=== PATIENT | female | born 1930 | race Caucasian/White ===

== ENCOUNTER 2017-06-12 06:52 | Day surgery (SDC) | payer MEDICARE ==
[~2017-06-12] VITALS: Ht 157.5 cm; Wt 64.9 kg
[2017-06-12 07:40] LABS: BASOPHILS 0.2 % (0-2); EOSINOPHILS 1.5 % (0-7); IMMATURE GRANULOCYTES 0.2 % (0-5); LYMPHOCYTES 32.3 % (15-50); MCH 31.3 pg (26.0-34.0); MCHC 32.4 g/dL (31.0-37.0); MCV 96.6 fL (80.0-100.0); MEAN PLATELET VOLUME 10.6 fL (7.4-10.4); MONOCYTES 13.3 % (2-11); NEUTROPHILS 52.5 % (40-80); PLATELET COUNT 239 10x3/uL (130-400); RBC 3.83 10x6/uL (4.00-5.40); RDW 12.6 % (11.5-14.5); WBC 4.6 10x3/uL (4.8-10.8)
[2017-06-12] MEDS ORDERED: DYAZIDE 37.5/251 CAP PO (08:10)
[2017-06-12] MEDS ORDERED: NORVASC5 MG PO (08:10)
[2017-06-12] MEDS ORDERED: PLAVIX75 MG PO (08:11)
[2017-06-12] MEDS ORDERED: PRINIVIL20 MG PO (08:11)
[2017-06-12] MEDS ORDERED: TRICOR145 MG PO (08:11)
[2017-06-12] MEDS ORDERED: ESTRACE 0.5 MG0.5 MG PO (08:12)
[2017-06-12] MEDS ORDERED: BAYER CHEWABLE81 MG PO (08:12)
[2017-06-12] MEDS ORDERED: MULTIPLE VITAMI1 TA1 PO (08:13)
[2017-06-12] MEDS ORDERED: GLUCOSAMINE & C1 CAP PO (08:13)
[2017-06-12] MEDS ORDERED: PRESERVISION AR1 CAP PO (08:13)
[2017-06-12] MEDS ORDERED: SYNTHROID75 MCG PO (08:13)
[2017-06-12] MEDS ORDERED: CALCIUM 500 + D1 TAB PO (08:14)
[2017-06-12 08:18] VITALS: BP 167/63; Ht 157.5 cm; Wt 64.9 kg
[2017-06-12 08:28] LABS: ANION GAP 17.3 mmol/L (8-16); CALCIUM 9.3 mg/dL (8.5-10.1); CARBON DIOXIDE 23.9 mmol/L (21.0-32.0); CREATININE - SERUM 1.2 mg/dL (0.6-1.3); POTASSIUM - SERUM 4.2 mmol/L (3.5-5.1)
--- NOTE | 2017-06-12 10:32 | NUR ---
DR CARLOS STARLA AND SIGN AT [id number]
[2017-06-12] MEDS ORDERED: ULTRAM50 MG PO (12:02)
--- NOTE | 2017-06-12 14:03 | NUR ---
1335 IV DC WITH CATHER TIP INTACT
--- NOTE | 2017-07-03 12:19 | OP ---
PATIENT NAME: MONIQUE HUTCHINSON MEDICAL RECORD: [id number] :[birth year] LOCATION:[facility] ADMISSION DATE: SURGEON: LINDEN CARLOS MD DATE OF OPERATION: 06/12/2017 PREOPERATIVE DIAGNOSES: 1. Left inguinal hernia. 2. Hypertension. 3. Hyperlipidemia. 4. History of transient ischemic attack. POSTOPERATIVE DIAGNOSES: 1. Left inguinal hernia. 2. Hypertension. 3. Hyperlipidemia. 4. History of transient ischemic attack. PROCEDURE: Left inguinal hernia repair with medium PHS mesh. SURGEON: Linden Carlos MD REPORT OF PROCEDURE: The patient's left groin was prepped and draped in sterile fashion. An oblique incision was made above the inguinal ligament. Electrocautery was used to dissect through the subcutaneous tissue down to the external oblique fascia. This fascia was incised with a 15 blade and then opened up to the external ring using electrocautery. The patient's tissues were elevated and a Gillette was placed around them. The patient did have an indirect hernia defect. The hernia sac was dissected free and then the round ligament was transected distally using a 2-0 silk. We then transected the hernia sac at its base along with the round ligament using a 2-0 silk tie. We then penetrated into the hernia defect and felt around the femoral canal and felt no sign of a femoral hernia. The preperitoneal space of Retzius was opened up and a medium PHS mesh was inserted. This was sutured down on all 4 sides using multiple interrupted 0 Vicryls. The ilioinguinal nerve was found to have high ligated. We then irrigated out the wound with normal saline. The external oblique fascia was closed with running 2-0 Vicryl, Pedro's was closed with interrupted 3-0 Vicryls and the skin was closed with running subcutaneous 5-0 Monocryl. A 10 mL of 0.25% Marcaine with epinephrine were used to reapproximate the subcutaneous tissues and the wound was dressed appropriately. COMPLICATIONS: None. CONDITION: Stable. ANESTHESIA: General endotracheal and local. BLOOD LOSS: Minimal. TRANSINT:[id number] Voice Confirmation ID: [id number] DOCUMENT ID: [id number] OPERATIVE REPORT [id number] MONIQUE HUTCHINSON LINDEN CARLOS MD at 1219 CC: ABHIJEET HOLLINS MD [id number] DICTATION DATE: 06/12/17 1207 DIRECTOR OF TECHNOLOGY: 06/12/17 1227 [facility] SD[facility] 06/12/17 [id number] [place] [address]
== END 2017-06-12 14:00 | disposition home or self-care (01) ==
LOC: D.OPS 06:52
PROVIDERS: Surgery
DX: K40.90 Unilateral inguinal hernia, without obstruction or gangrene, not specified as recurrent (principal); I10 Essential (primary) hypertension; E78.5 Hyperlipidemia, unspecified; Z86.73 Personal history of transient ischemic attack (TIA), and cerebral infarction without residual deficits; Z01.812 Encounter for preprocedural laboratory examination